=== PATIENT | female | born 1965 | race Caucasian/White ===

== ENCOUNTER → 2016-12-06 | Outpatient (CLI) | payer MEDICARE, MEDICAID | LOC: LAB 15:24 | DX: N92.6 Irregular menstruation, unspecified (principal) ==

== ENCOUNTER → 2017-12-20 | Outpatient (CLI) | payer MEDICARE, MEDICAID | LOC: RAD 08:56 | DX: S83.511A Sprain of anterior cruciate ligament of right knee, initial encounter (principal); S80.01XA Contusion of right knee, initial encounter; M25.461 Effusion, right knee ==

== ENCOUNTER → 2018-01-17 | Outpatient (CLI) | payer MEDICARE, MEDICAID | LOC: RAD 10:31 | DX: M25.561 Pain in right knee (principal) ==

== ENCOUNTER 2018-03-01 13:00 | Outpatient (RCR) | payer MEDICARE, MEDICAID | END 2018-03-01 13:30 | disposition home or self-care (01) | LOC: PT 13:00 | DX: Z47.89 Encounter for other orthopedic aftercare (principal) ==

== ENCOUNTER → 2019-04-03 | Outpatient (CLI) | payer MEDICARE ==
[2019-04-03 13:29] LABS: POTASSIUM 3.9 mmol/L (3.5-5.1)
[2019-04-03 13:30] LABS: ALBUMIN 4.1 g/dL (3.5-5.0)
[2019-04-03 13:31] LABS: CALCIUM 9.1 mg/dL (8.3-10.5); EOS # 0.2 (0.04-0.40); EOS % 2.1 % (1.0-5.0); HEMOGLOBIN 13.9 g/dL (12.5-16.0); LYMPH# 1.9 (1.50-4.00); MEAN CELL VOLUME 78 fl (78-100); MEAN CORPUSCULAR HEMOGLOBIN 26 pg (27-31); MEAN CORPUSCULAR HGB CONC 33 g/dL (33-37); MEAN PLATELET VOLUME 10.6 fl (7.4-10.4); MONO # 0.8 (0.20-0.80); NEU # 5.3 (1.40-6.50); PLATELET COUNT 336 K/mm3 (130-400); RED BLOOD COUNT 5.37 M/mm3 (4.10-5.30); RED CELL DISTRIBUTION WIDTH 14.4 % (11.5-14.5); WHITE BLOOD COUNT 8.2 K/mm3 (4.8-10.8)
[2019-04-03 13:32] LABS: TOTAL PROTEIN 8.1 g/dL (6.4-8.3)
[2019-04-03 13:33] LABS: URINE APPEARANCE CLEAR; URINE BILIRUBIN NEGATIVE (NEGATIVE); URINE BLOOD NEGATIVE (NEGATIVE); URINE COLOR YELLOW; URINE GLUCOSE NEGATIVE (NEGATIVE); URINE KETONE NEGATIVE (NEGATIVE); URINE LEUKOCYTE ESTERASE NEGATIVE (NEGATIVE); URINE NITRATE NEGATIVE (NEGATIVE); URINE PROTEIN(semi-quant) NEGATIVE (NEGATIVE); URINE UROBILINOGEN NORMAL (NORMAL)
[2019-04-03 13:34] LABS: TOTAL BILIRUBIN 0.3 mg/dL (0.2-1.2); URINE MUCUS PRESENT (NOT PRESENT)
[2019-04-03 14:17] LABS: ERYTHROCYTE SEDIMENTATION RATE 50 mm/hr (0-30)
== END ==
LOC: LAB 12:55
PROVIDERS: Internal Medicine
DX: Z12.11 Encounter for screening for malignant neoplasm of colon (principal); G40.209 Localization-related (focal) (partial) symptomatic epilepsy and epileptic syndromes with complex partial seizures, not intractable, without status epilepticus; D50.9 Iron deficiency anemia, unspecified; E78.2 Mixed hyperlipidemia; K90.89 Other intestinal malabsorption

== ENCOUNTER → 2019-04-10 | Outpatient (CLI) | payer MEDICARE | LOC: RAD 07:00 | DX: K12.1 Other forms of stomatitis (principal); R22.0 Localized swelling, mass and lump, head | CPT/HCPCS: A9585 ==